=== PATIENT | male | born 1945 | race Caucasian/White ===

== ENCOUNTER 2018-05-04 10:27 | Outpatient (CLI) | payer MEDICARE, BC ==
--- NOTE | 2018-05-04 12:42 | RAD ---
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 FINDINGS: AP, lateral, swimmer's, flexion and extensive views of the cervical spine obtained. IMPRESSION: Images demonstrate no evidence of significant anterolisthesis or retrolisthesis seen. There is some d isc space height loss with anterior and posterior osteophytes seen at the C5-6 level. This is compati ble with mild changes of spondylosis. No other acute cervical spine abnormality is seen. IMPRESSION: Mild C5-6 changes of spondylosis. POS: C
== END 2018-05-04 10:28 | disposition home or self-care (01) ==
LOC: BICRAD 10:27
PROVIDERS: ATTEND Specialist
DX: M47.812 Spondylosis without myelopathy or radiculopathy, cervical region (principal)
CPT/HCPCS: 72050

== ENCOUNTER 2018-08-07 14:30 | Outpatient (CLI) | payer MEDICARE, BC ==
--- NOTE | 2018-08-10 23:13 | EKG ---
Test Reason : CODE GREEN/PAIN CLIN Blood Pressure : / mmHG Vent. Rate : 119 BPM Atrial Rate : 067 BPM P-R Int : 000 ms QRS Dur : 156 ms QT Int : 376 ms P-R-T Axes : 000 180 -06 degrees QTc Int : 528 ms Atrial fibrillation with rapid ventricular response Right bundle branch block Left posterior fascicular block Bifascicular block Inferior infarct , age undetermined Abnormal ECG When compared with ECG of 10-SEP-2005 09:54, Vent. rate has increased BY 49 BPM Left posterior fascicular block is now Present Confirmed by MISAEL LUNA M.D. ([id number]) on 08/10/2018 11:12:59 PM Referred By: MORENO Confirmed By:MISAEL LUNA M.D.
== END 2018-08-07 14:31 | disposition home or self-care (01) ==
LOC: EKG 14:30
PROVIDERS: ATTEND Specialist
DX: I48.91 Unspecified atrial fibrillation (principal)
CPT/HCPCS: 80053; 84484; 93005; 93010

== ENCOUNTER 2018-09-27 07:21 | Outpatient (CLI) | payer MEDICARE, BC ==
[2018-09-27 15:50] LABS: Hemoglobin 16.5 g/dL (14.0-18.0); Mean Corpuscular HGB CONC 33.9 g/dL (32.0-36.0); Mean Corpuscular Hemoglobin 30.8 pg (27.0-31.0); Mean Corpuscular Volume 91.1 fL (78.0-98.0); Mean Platelet Volume 7.5 fL (7.4-10.4); Platelet Count 250 thou/uL (130-400); RBC Distribution Width 12.6 % (11.5-14.5); Red Blood Cell (RBC) Count 5.35 mill/uL (4.70-6.10); White Blood Cell (WBC) Count 8.8 thou/uL (4.8-10.8)
[2018-09-27 15:57] LABS: INR-International Normal Ratio 1.1; PTT 34.4 SEC (22.9-36.1); Prothrombin Time 14.7 SEC (12.0-14.7)
[2018-09-27 16:08] LABS: Anion Gap 15 mmol/L (10-20); BUN (Urea Nitrogen) 15 mg/dL (8.4-25.7); Calc. Creatinine Clearance 0 mL/min (70-130); Calcium 10.3 mg/dL (7.8-10.44); Carbon Dioxide 19 mmol/L (23-31); Chloride 107 mmol/L (98-107); Estimated GFR-MDRD 76; Glucose 82 mg/dL (83-110); Potassium 4.4 mmol/L (3.5-5.1); Sodium 137 mmol/L (136-145)
--- NOTE | 2018-09-28 18:11 | EKG ---
Test Reason : Blood Pressure : / mmHG Vent. Rate : 084 BPM Atrial Rate : 092 BPM P-R Int : 000 ms QRS Dur : 154 ms QT Int : 398 ms P-R-T Axes : 000 144 019 degrees QTc Int : 470 ms Atrial fibrillation Right bundle branch block Abnormal ECG When compared with ECG of 07-AUG-2018 14:15, Criteria for Inferior infarct are no longer Present Confirmed by DR. Clare ORTEGA ([id number]) on 09/28/2018 6:10:50 PM Referred By: [facility] Confirmed By:DR. Clare ORTEGA
== END 2018-09-27 07:22 | disposition home or self-care (01) ==
LOC: LABBT 07:21
PROVIDERS: ATTEND Internal Medicine Cardiovascular Disease
DX: Z01.818 Encounter for other preprocedural examination (principal); I48.91 Unspecified atrial fibrillation
CPT/HCPCS: 80048; 85027; 85610; 85730; 93005; 93010

== ENCOUNTER 2018-10-02 08:13 | Observation (INO) | payer MEDICARE, BC ==
[2018-09-27 14:56] VITALS: BMI 35.6
[2018-10-02] MEDS ORDERED: PROPOFOL 200 MG/20 ML VIAL ONE (10:33)
[2018-10-02] MEDS ORDERED: PHENYLEPHRINE-NS 100 MCG/ML 10 ML SYRINGE ONE (10:33)
[2018-10-02] MEDS ORDERED: Gentamicin 80 MG/2 ML VIAL ONE (12:16)
[2018-10-02] MEDS ORDERED: Levofloxacin 500 mg/D5W 100 ml Premix Bag ONE (12:17)
[2018-10-02] MEDS ORDERED: Heparin 10,000 UNITS/1 ML VIAL ONE (12:18)
[2018-10-02] MEDS ORDERED: Propofol 500 MG/50 ML VIAL ONE (12:36)
[2018-10-02] MEDS ORDERED: Propofol 1,000 MG/100 ML VIAL IV ONE (12:36)
[2018-10-02] MEDS ORDERED: Midazolam HCl 2 mg/2 ml Vial ONE (13:20)
[2018-10-02] MEDS ORDERED: Fentanyl 100 MCG/2 ML VIAL ONE ×2 (13:21→16:44)
[2018-10-02] MEDS ORDERED: DOPamine 400 MG/D5W 250 ML 250 ML ONE (16:03)
[2018-10-02] MEDS ORDERED: HumaLOG 300 UNITS/3 ML VIAL SC SCH (17:30)
[2018-10-02] MEDS ORDERED: Acetaminophen/Codeine 30-300mg Tablet PO PRN (18:45)
[2018-10-02] MEDS ORDERED: Fenofibrate Nanocrystallized 145 MG TAB PO SCH (21:00)
[2018-10-02] MEDS: Clindamycin/D5W 600 MG in Premix Bag 1 BAG IVPB SCH (21:19)
--- NOTE | 2018-10-02 22:22 | OP ---
DATE OF PROCEDURE: 10/02/2018 PROCEDURE PERFORMED: EP study and radiofrequency ablation. REASON FOR PROCEDURE: Mr. Read is a 73-year-old man who has long-standing, over 30 years of chronic persisting atrial fibrillation. He has difficult rate control even with double AV luis fernando blocking agent therapy. His LVEF also has reduced. Here for potential resynchronization device and AV luis fernando ablation. DESCRIPTION OF PROCEDURE: The patient received propofol by anesthesia specialist. After adequate level of sedation achieved, the right femoral vein was prepped, draped, and anesthetized with subcutaneous lidocaine and under ultrasound guidance, the right femoral vein was accessed. An 8-Paraguayan short sheath was introduced through which a [employer] SF catheter was advanced to the right ventricular, right atrium, coronary sinus and His bundle location. Pacing, mapping, and recording were performed in each location. The His bundle was clearly delineated. The HV interval was measured to be 50 milliseconds. The atrial pacing was not possible due to persisting atrial fibrillation. Following that, 3D map of the right atrium, right ventricle, and the coronary sinus area was obtained. The His bundle and right bundle locations were clearly delineated. The baseline electrogram showed right bundle branch block pattern. On the other hand, with advancing the catheter probe into the coronary sinus, the no delayed activation of the LV lateral free wall was noted during baseline right bundle conduction. This was suggestive against against LV dyssynchrony due to RBBB. Decision was made to perform Bi-V pacing prior to AV luis fernando ablation using the His bundle location as a most optimal pacing location for the LV. At this point, a Bi-V pacemaker was inserted with RV lead in the distal right ventricular upper septum and the resynchronization lead was placed to the His bundle location, delivered through a deflectable catheter using Carto 3D map. For details, please see separate report. After the Bi-V pacemaker function was adequate, we proceeded with AV luis fernando ablation. A total of 3 lesions were delivered at 1 minute and 35 seconds duration at 40 cramer. During the ablation, initially junctional rhythm, but finally complete AV block was seen. Dopamine was administered and AV block persisted. The Bi-V pacing function had again revaluated. The Bi-V pacemaker was programmed to 75 beats per minute. The QRS duration had changed from the baseline 136 milliseconds in the right bundle pattern to 120 milliseconds with atypical right bundle pattern still existing. CONCLUSION: 1. Successful mapping of the His bundle and aiding the positioning of the LV lead to the His bundle area. 2. Successful Bi-V pacemaker implantation. Please see separate report. 3. Successful AV luis fernando ablation. PLAN: Resume anticoagulation lifelong and can taper off AV luis fernando blockers. Job ID: [id number] [facility]
[2018-10-03] MEDS: Clindamycin/D5W 600 MG in Premix Bag 1 BAG IVPB SCH (05:18)
[2018-10-03] MEDS: Acetaminophen/Codeine 30-300mg Tablet PO PRN ×2 (05:21→10:59)
[2018-10-03] MEDS ORDERED: Iopamidol 370 76% 50 ML VIAL FS ONE (07:55)
[2018-10-03] MEDS ORDERED: metFORMIN XR 500 MG TAB PO SCH (08:00)
--- NOTE | 2018-10-03 08:16 | RAD ---
CHEST ONE VIEW: INDICATIONS: New pacemaker. COMPARISON: None. FINDINGS: There is a dual-lead pacemaker overlying the left chest wall. Heart size is mildly prominent. Lungs are clear. No pneumothorax is evident. No acute osseous abnormality is evident. IMPRESSION: 1. No pneumothorax. 2. Pacemaker leads project in the expected positions. 3. Mild cardiomegaly without evidence of cardiac decompensation. POS: [facility]
[2018-10-03] MEDS ORDERED: Rosuvastatin 10 MG TAB PO SCH (09:00)
[2018-10-03] MEDS ORDERED: CANAGLIFLOZIN 100 MG PO SCH (09:00)
[2018-10-03] MEDS ORDERED: TESTOSTERONE GEL TOP SCH (09:00)
--- NOTE | 2018-10-03 09:37 | EKG ---
Test Reason : Blood Pressure : / mmHG Vent. Rate : 075 BPM Atrial Rate : 069 BPM P-R Int : 000 ms QRS Dur : 152 ms QT Int : 430 ms P-R-T Axes : 000 044 252 degrees QTc Int : 480 ms Electronic ventricular pacemaker When compared with ECG of 02-OCT-2018 17:07, (Unconfirmed) No significant change was found Confirmed by DR. Zahira OCONNOR ([id number]) on 10/03/2018 9:37:08 AM Referred By: KAYLIN Confirmed By:DR. Zahira OCONNOR
[2018-10-03 11:55] VITALS: TEMP 98.3
[2018-10-03] MEDS ORDERED: Clindamycin 150 MG CAP PO SCH (13:00)
[2018-10-03 13:04] VITALS: BP 109/54
--- NOTE | 2018-10-03 14:21 | DIS ---
DATE OF ADMISSION: 10/02/2018 DATE OF DISCHARGE: 10/03/2018 CONDITION ON DISCHARGE: Stable. DIAGNOSES: 1. Chronic atrial fibrillation. 2. Right bundle-branch block. PROCEDURES PERFORMED: 1. Successful mapping of the His bundle and aiding the position of the LV lead to the His bundle area. 2. Successful biventricular pacemaker implantation with a lead to the His bundle and lead to the right ventricle. 3. Successful AV node ablation. HISTORY OF PRESENT ILLNESS: Mr. Read is a 73-year-old gentleman with a longstanding 30-year history of chronic atrial fibrillation with difficult rate control in spite of maximizing AV luis fernando blocking agent therapy. His LVEF has also been reduced. He was admitted to the hospital to undergo a multilead pacemaker implantation and AV node ablation. His pacemaker is currently programed to 75 beats per minute. SUBJECTIVE: Mr. Read is feeling well today. He has been ambulating, tolerating p.o. intake, and voiding normally. He feels well and is eager to go home. He denies any heart racing or palpitations. OBJECTIVE: VITAL SIGNS: Temperature 98.3, pulse 75, blood pressure 120/58, respirations 16, oxygen is 96% on room air. GENERAL: The patient is alert and oriented. Speech is clear. Affect is appropriate. NEUROLOGIC: Grossly intact and nonfocal. NECK: Supple without jugular venous distention. CHEST: Heart rate is irregularly irregular at 75 beats per minute. His device is seated at the left infraclavicular fossa with some mild swelling and bruising. There is no drainage. There are no signs for infection. Dermabond is clearly intact over the incision with the edges well approximated. LUNGS: Clear to auscultation bilaterally without wheezes, crackles, or rhonchi. EXTREMITIES: Warm and dry to touch without clubbing, cyanosis, or edema. Gait is stable. DISCHARGE INSTRUCTIONS: No driving for 2 days. No extending left elbow above shoulder for 1 month. No full range of motion exercises for the left arm for 3 months. Take postimplant antibiotics as prescribed for 1 week. Wound and device check with [facility] in 10 to 14 days as already scheduled. Contact [facility] with any postimplant and postablation questions. DISCHARGE MEDICATIONS: Continued home medications: 1. Metoprolol succinate 50 mg b.i.d. 2. Humalog as directed. 3. Enalapril 5 mg daily. 4. Crestor 10 mg daily. 5. Colestipol 10 mg b.i.d. 6. Eliquis 5 mg twice a day, to resume tonight on 10/03/2018 with p.m. dose. 7. Tricor 140 mg p.o. at bedtime. 8. Metformin as directed. 9. Invokana as directed. 10. Trulicity as directed. 11. Testosterone gel as directed. Discontinued medications: Digoxin. New prescriptions: Clindamycin 300 mg p.o. q.i.d. x7 days, postimplant. The patient is stable and ready for discharge. We will see him back in clinic. He will contact us with any concerns in the interim. Job ID: [id number]
[2018-10-03] MEDS ORDERED: Apixaban 5 MG TAB PO SCH (21:00)
[2018-10-08] MEDS ORDERED: DULAGLUTIDE (TRULICITY) SC SCH (17:15)
== END 2018-10-03 14:10 | disposition home or self-care (01) ==
LOC: CCL 08:13 → 2SW 17:41
PROVIDERS: ADMIT Internal Medicine Cardiovascular Disease; ATTEND Internal Medicine Cardiovascular Disease
PROC: 02583ZZ Destruction of Conduction Mechanism, Percutaneous Approach (ICD-10-PCS; principal; 2018-10-02)
PROC: 02K83ZZ Map Conduction Mechanism, Percutaneous Approach (ICD-10-PCS; 2018-10-02)
PROC: 4A023FZ Measurement of Cardiac Rhythm, Percutaneous Approach (ICD-10-PCS; 2018-10-02)
PROC: 4A0234Z Measurement of Cardiac Electrical Activity, Percutaneous Approach (ICD-10-PCS; 2018-10-02)
PROC: 0JH607Z Insertion of Cardiac Resynchronization Pacemaker Pulse Generator into Chest Subcutaneous Tissue and Fascia, Open Approach (ICD-10-PCS; 2018-10-02)
PROC: 02HK3JZ Insertion of Pacemaker Lead into Right Ventricle, Percutaneous Approach (ICD-10-PCS; 2018-10-02)
DX: I48.2 Chronic atrial fibrillation (principal); I48.1 Persistent atrial fibrillation; I45.10 Unspecified right bundle-branch block; I10 Essential (primary) hypertension; E11.9 Type 2 diabetes mellitus without complications; E78.5 Hyperlipidemia, unspecified; I25.10 Atherosclerotic heart disease of native coronary artery without angina pectoris; G47.30 Sleep apnea, unspecified; Z88.0 Allergy status to penicillin; Z79.4 Long term (current) use of insulin; Z79.01 Long term (current) use of anticoagulants; Z79.2 Long term (current) use of antibiotics; Z79.899 Other long term (current) drug therapy
CPT/HCPCS: 33207; 33225; 71045; 75820; 76942; 82962 ×2; 93005; 93650; 93798; 96365; 96366; C1732; C1769; C1882; C1898 ×2; G0378; 33208; 36005; 36416; 93010; 93600; 93613; 93623; J1265; J1580; J1644; J1956; J2250; J2704; J3010; J3490; Q9967

== ENCOUNTER 2022-04-29 12:12 | Emergency (ER) | payer MEDICARE, BC ==
[~2022-04-29 12:12] MED LIST: Iopamidol-370 76% 500 ML 1 ML ONE
[2022-04-29 13:49] LABS: #Eosinphils 0.1 thou/uL (0.0-0.7); #Lymphocytes 1.9 thou/uL (1.20-3.40); #Monocytes 0.9 thou/uL (0.11-0.59); #Neutrophils 8.8 thou/uL (1.40-6.50); %Basophils 0.4 % (0.0-1.0); %Eosinophils 0.8 % (0.0-10.0); %Lymphocytes 15.9 % (21.0-51.0); %Monocytes 7.9 % (0.0-10.0); Hemoglobin 16.8 g/dL (14.0-18.0); Mean Corpuscular HGB CONC 32.3 g/dL (32.0-36.0); Mean Corpuscular Hemoglobin 29.8 pg (27.0-31.0); Mean Corpuscular Volume 92.2 fL (78.0-98.0); Mean Platelet Volume 7.5 fL (7.4-10.4); Platelet Count 201 thou/uL (130-400); RBC Distribution Width 12.1 % (11.5-14.5); Red Blood Cell (RBC) Count 5.66 mill/uL (4.70-6.10); White Blood Cell (WBC) Count 11.7 thou/uL (4.8-10.8)
[2022-04-29 14:06] LABS: ALT (SGPT) 40 U/L (8-55); AST (SGOT) 34 U/L (5-34); Albumin 4.6 g/dL (3.4-4.8); Alkaline Phosphatase 66 U/L (40-110); Anion Gap 17 mmol/L (10-20); BUN (Urea Nitrogen) 11 mg/dL (8.4-25.7); Bilirubin, Total 1.5 mg/dL (0.2-1.2); Calc. Creatinine Clearance 0 mL/min (70-130); Calcium 9.8 mg/dL (7.8-10.44); Carbon Dioxide 21 mmol/L (23-31); Chloride 102 mmol/L (98-107); Estimated GFR 89; Globulin 3.9 g/dL (2.4-3.5); Glucose 155 mg/dL (83-110); Lipase 14 U/L (8-78); Potassium 4.2 mmol/L (3.5-5.1); Protein, Total 8.5 g/dL (5.8-8.1); Sodium 136 mmol/L (136-145)
== END 2022-04-29 15:33 | disposition home or self-care (01) ==
LOC: ERS 12:12
DX: K59.00 Constipation, unspecified (principal); I10 Essential (primary) hypertension; E11.9 Type 2 diabetes mellitus without complications; I48.91 Unspecified atrial fibrillation; Z79.82 Long term (current) use of aspirin; Z79.84 Long term (current) use of oral hypoglycemic drugs; Z79.899 Other long term (current) drug therapy
CPT/HCPCS: 36415; 74177; 80053; 83605; 83690; 85025; Q9967

== ENCOUNTER 2022-04-30 09:12 | Outpatient (CLI) | payer MEDICARE, BC ==
[2022-04-30 11:50] LABS: Anion Gap 17 mmol/L (10-20); BUN (Urea Nitrogen) 11 mg/dL (8.4-25.7); Calc. Creatinine Clearance 0 mL/min (70-130); Calcium 9.5 mg/dL (7.8-10.44); Carbon Dioxide 23 mmol/L (23-31); Chloride 101 mmol/L (98-107); Estimated GFR 92; Glucose 137 mg/dL (83-110); Potassium 4.5 mmol/L (3.5-5.1); Sodium 136 mmol/L (136-145)
[2022-04-30 11:51] LABS: Hemoglobin 16.4 g/dL (13.5-17.5); Mean Corpuscular HGB CONC 34.2 g/dL (32.0-36.0); Mean Corpuscular Hemoglobin 29.9 pg (27.0-33.0); Mean Corpuscular Volume 87.4 fl (81.2-95.1); Mean Platelet Volume 10.2 fl (7.4-10.4); Platelet Count 225 10x3/uL (150-450); RBC Distribution Width 12.8 % (11.5-14.5); Red Blood Cell (RBC) Count 5.48 10x6/uL (4.32-5.72); White Blood Cell (WBC) Count 9.6 10x3/uL (3.5-10.5)
[2022-04-30 12:03] LABS: Prothrombin Time 10.2 sec (9.5-12.1)
== END 2022-04-30 09:13 | disposition home or self-care (01) ==
LOC: LABBT 09:12
PROVIDERS: ATTEND Surgery
DX: Z01.812 Encounter for preprocedural laboratory examination (principal); M54.16 Radiculopathy, lumbar region; M48.062 Spinal stenosis, lumbar region with neurogenic claudication
CPT/HCPCS: 80048; 85027; 85610; 85730

== ENCOUNTER 2022-08-10 16:58 | Inpatient (IN) | payer MEDICARE, BC ==
[2022-08-10 18:00] LABS: #Basophils 0.1 thou/uL (0.0-0.2); #Eosinphils 0.2 thou/uL (0.0-0.7); #Monocytes 0.5 thou/uL (0.11-0.59); #Neutrophils 3.9 thou/uL (1.40-6.50); %Basophils 0.9 % (0.0-1.0); %Eosinophils 3.2 % (0.0-10.0); %Lymphocytes 30.1 % (21.0-51.0); %Monocytes 7.6 % (0.0-10.0); %Neutrophils 58.2 % (42.0-75.0); Hemoglobin 15.1 g/dL (14.0-18.0); Mean Corpuscular HGB CONC 34.6 g/dL (32.0-36.0); Mean Corpuscular Hemoglobin 30.7 pg (27.0-31.0); Mean Corpuscular Volume 88.7 fl (78.0-98.0); Mean Platelet Volume 8.2 fL (7.4-10.4); Platelet Count 168 10x3/uL (130-400); RBC Distribution Width 12.8 % (11.5-14.5); Red Blood Cell (RBC) Count 4.93 mill/uL (4.70-6.10); White Blood Cell (WBC) Count 6.7 10x3/uL (4.8-10.8)
[2022-08-10 18:35] LABS: ALT (SGPT) 19 U/L (8-55); AST (SGOT) 25 U/L (5-34); Albumin 4.1 g/dL (3.4-4.8); Alkaline Phosphatase 42 U/L (40-110); Anion Gap 19 mmol/L (10-20); BUN (Urea Nitrogen) 11 mg/dL (8.4-25.7); Bilirubin, Total 0.7 mg/dL (0.2-1.2); Calc. Creatinine Clearance 0 mL/min (70-130); Calcium 9.6 mg/dL (7.8-10.44); Carbon Dioxide 19 mmol/L (23-31); Chloride 106 mmol/L (98-107); Estimated GFR 95; Globulin 3.2 g/dL (2.4-3.5); Glucose 127 mg/dL (83-110); Protein, Total 7.3 g/dL (5.8-8.1); Sodium 140 mmol/L (136-145)
[2022-08-10 20:12] LABS: Magnesium 1.4 mg/dL (1.6-2.6)
[2022-08-10] MEDS ORDERED: Calcium Carbonate 500 MG ChewTAB PO PRN (21:04)
[2022-08-10] MEDS ORDERED: Ondansetron ODT 4 MG TAB PO PRN (21:04)
[2022-08-10] MEDS ORDERED: Senokot S 8.6-50 MG TAB PO PRN (21:04)
[2022-08-10] MEDS ORDERED: Dextrose 50% Abboject 50 ML SYRINGE SLOW IVP PRN (21:07)
[2022-08-10] MEDS ORDERED: Dextrose 5% in Water 1,000 ML IV PRN (21:07)
[2022-08-10] MEDS ORDERED: HumaLOG 300 UNITS/3 ML VIAL SC PRN (21:07)
[2022-08-10 21:56] LABS: Troponin I Less than 0.010 ng/mL (< 0.028)
[2022-08-10] MEDS ORDERED: Magnesium 2 GM/50 ML(in water) 2 GM in Premix Bag 1 BAG IVPB SCH (22:00)
[2022-08-10 22:31] VITALS: BMI 36.8
[2022-08-11] MEDS ORDERED: Dextrose 5%-Lactated Ringers 1,000 ML IV SCH (00:01)
[2022-08-11 01:24] LABS: Troponin I Less than 0.010 ng/mL (< 0.028)
[2022-08-11 05:39] LABS: Anion Gap 13 mmol/L (10-20); BUN (Urea Nitrogen) 10 mg/dL (8.4-25.7); Calc. Creatinine Clearance 144 mL/min (70-130); Calcium 9.1 mg/dL (7.8-10.44); Carbon Dioxide 25 mmol/L (23-31); Chloride 107 mmol/L (98-107); Estimated GFR 94; Glucose 115 mg/dL (83-110); Sodium 141 mmol/L (136-145)
[2022-08-11] MEDS ORDERED: Electrolyte Replacement Protocol 1 EACH FS SCH (08:00)
[2022-08-11] MEDS: metFORMIN 500 MG TAB PO SCH ×2 (08:42→20:42)
[2022-08-11] MEDS: Lisinopril 20 MG TAB PO SCH (08:43)
[2022-08-11] MEDS ORDERED: Magnesium 2 GM/50 ML(in water) 2 GM in Premix Bag 1 BAG IVPB SCH (09:00)
[2022-08-11] MEDS ORDERED: Empagliflozin 25 MG TAB PO SCH (09:00)
[2022-08-11 09:37] LABS: Magnesium 1.8 mg/dL (1.6-2.6)
[2022-08-11] MEDS ORDERED: Polyethylene Glycol 3350 17 GM Packet PO PRN ×2 (12:19→12:51)
[2022-08-11] MEDS ORDERED: Aspirin 81 mg Enteric Coated Tablet PO SCH (12:30)
[2022-08-11] MEDS: Sodium Chloride 0.9% 1,000 ML IV SCH (18:18)
[2022-08-11] MEDS: Rosuvastatin 10 MG TAB PO SCH (20:43)
[2022-08-11] MEDS: Communication Order-Pharmacy FS SCH (20:44)
[2022-08-12] MEDS: Sodium Chloride 0.9% 1,000 ML IV SCH (04:16)
[2022-08-12 05:10] LABS: #Basophils 0.1 thou/uL (0.0-0.2); #Eosinphils 0.2 thou/uL (0.0-0.7); #Monocytes 0.5 thou/uL (0.11-0.59); #Neutrophils 3.3 thou/uL (1.40-6.50); %Basophils 1.2 % (0.0-1.0); %Lymphocytes 33.2 % (21.0-51.0); %Monocytes 7.8 % (0.0-10.0); %Neutrophils 53.8 % (42.0-75.0); Mean Corpuscular HGB CONC 33.6 g/dL (32.0-36.0); Mean Corpuscular Hemoglobin 30.1 pg (27.0-31.0); Mean Corpuscular Volume 89.5 fl (78.0-98.0); Mean Platelet Volume 7.7 fL (7.4-10.4); Platelet Count 160 10x3/uL (130-400); RBC Distribution Width 12.9 % (11.5-14.5); Red Blood Cell (RBC) Count 4.65 mill/uL (4.70-6.10); White Blood Cell (WBC) Count 6.1 10x3/uL (4.8-10.8)
[2022-08-12 05:45] LABS: Anion Gap 14 mmol/L (10-20); BUN (Urea Nitrogen) 8 mg/dL (8.4-25.7); Calc. Creatinine Clearance 152 mL/min (70-130); Calcium 8.4 mg/dL (7.8-10.44); Carbon Dioxide 21 mmol/L (23-31); Chloride 111 mmol/L (98-107); Estimated GFR 95; Glucose 110 mg/dL (83-110); Potassium 3.8 mmol/L (3.5-5.1); Sodium 142 mmol/L (136-145)
[2022-08-12] MEDS: Lisinopril 20 MG TAB PO SCH (06:02)
[2022-08-12] MEDS: Aspirin 81 mg Enteric Coated Tablet PO SCH (06:02)
[2022-08-12] MEDS ORDERED: Lidocaine 1% (PF) 30 ML VIAL ONE (06:34)
[2022-08-12] MEDS ORDERED: Verapamil 5 MG/2 ML VIAL ONE (06:34)
[2022-08-12] MEDS ORDERED: Heparin 10,000 UNITS/ 10 ML VIAL ONE (06:34)
[2022-08-12] MEDS ORDERED: Nitroglycerin 100MG/250ML BOT 250 ML ONE (06:34)
[2022-08-12] MEDS ORDERED: Magnesium 2 GM/50 ML(in water) 2 GM in Premix Bag 1 BAG IVPB SCH (08:00)
[2022-08-12] MEDS ORDERED: Midazolam HCl 2 mg/2 ml Vial ONE (08:27)
[2022-08-12] MEDS ORDERED: FENTANYL 50 MCG/ML 1 ML VIAL ONE (08:28)
[2022-08-12] MEDS: Acetaminophen 325 MG TAB PO PRN (09:51)
[2022-08-12 10:10] LABS: Troponin I Less than 0.010 ng/mL (< 0.028)
[2022-08-12] MEDS ORDERED: Iopamidol 370 76% 100 ML VIAL ONE ×2 (14:27→15:33)
[2022-08-12] MEDS: Communication Order-Pharmacy FS SCH (19:00)
[2022-08-12] MEDS: Rosuvastatin 10 MG TAB PO SCH (20:32)
[2022-08-13 05:13] LABS: #Eosinphils 0.2 thou/uL (0.0-0.7); #Lymphocytes 1.6 thou/uL (1.20-3.40); #Monocytes 0.5 thou/uL (0.11-0.59); #Neutrophils 3.8 thou/uL (1.40-6.50); %Basophils 0.6 % (0.0-1.0); %Eosinophils 3.7 % (0.0-10.0); %Lymphocytes 26.5 % (21.0-51.0); %Monocytes 7.9 % (0.0-10.0); %Neutrophils 61.2 % (42.0-75.0); Hemoglobin 13.8 g/dL (14.0-18.0); Mean Corpuscular HGB CONC 34.4 g/dL (32.0-36.0); Mean Corpuscular Hemoglobin 30.6 pg (27.0-31.0); Mean Corpuscular Volume 88.9 fl (78.0-98.0); Platelet Count 160 10x3/uL (130-400); RBC Distribution Width 12.9 % (11.5-14.5); Red Blood Cell (RBC) Count 4.52 mill/uL (4.70-6.10); White Blood Cell (WBC) Count 6.2 10x3/uL (4.8-10.8)
[2022-08-13] MEDS: Lisinopril 20 MG TAB PO SCH (05:30)
[2022-08-13] MEDS: Aspirin 81 mg Enteric Coated Tablet PO SCH (05:31)
[2022-08-13 05:32] LABS: Anion Gap 14 mmol/L (10-20); BUN (Urea Nitrogen) 8 mg/dL (8.4-25.7); Calc. Creatinine Clearance 161 mL/min (70-130); Calcium 8.6 mg/dL (7.8-10.44); Carbon Dioxide 21 mmol/L (23-31); Chloride 110 mmol/L (98-107); Estimated GFR 97; Glucose 123 mg/dL (83-110); Magnesium 2.2 mg/dL (1.6-2.6); Potassium 4.1 mmol/L (3.5-5.1); Sodium 141 mmol/L (136-145)
[2022-08-13] MEDS ORDERED: Isoproterenol 0.2 MG/1 ML AMP ONE (12:04)
[2022-08-13] MEDS ORDERED: Clindamycin/D5W 900 mg/50 ml Premix Bag ONE (12:04)
[2022-08-13] MEDS ORDERED: Heparin 10,000 UNITS/ 10 ML VIAL ONE (12:04)
[2022-08-13] MEDS ORDERED: Lidocaine 1% (PF) 30 ML VIAL ONE (12:04)
[2022-08-13] MEDS ORDERED: Gentamicin 80 MG/2 ML VIAL ONE (12:04)
[2022-08-13] MEDS ORDERED: Midazolam HCl 2 mg/2 ml Vial ONE (13:35)
[2022-08-13] MEDS ORDERED: FENTANYL 50 MCG/ML 1 ML VIAL ONE (13:36)
[2022-08-13] MEDS ORDERED: Propofol 1,000 MG/100 ML VIAL IV ONE (14:31)
[2022-08-13] MEDS ORDERED: ePHEDrine 50 MG/ML VIAL ONE (14:46)
[2022-08-13] MEDS ORDERED: Promethazine HCl 25 MG/ML VIAL IM PRN (15:29)
[2022-08-13] MEDS ORDERED: Ondansetron HCl/PF 4 MG/2 ML Vial IVP PRN (15:29)
[2022-08-13] MEDS ORDERED: Fentanyl 100 MCG/2 ML VIAL ONE (15:30)
[2022-08-13] MEDS: Acetaminophen 325 MG TAB PO PRN (17:43)
[2022-08-13 19:24] VITALS: BP 121/58; TEMP 98
[2022-08-14] MEDS ORDERED: Lisinopril 10 MG TAB PO SCH (09:00)
[2022-08-17] MEDS ORDERED: Dulaglutide [Trulicity] 1.5 MG/0.5 ML Pen.Injctr SC SCH (09:00)
== END 2022-08-13 19:29 | disposition home or self-care (01) | DRG 274 ==
LOC: ERS 16:58 → 2SW 19:33 → OBSVTOIN 08-11 09:55
PROVIDERS: ADMIT Student in an Organized Health Care Education/Training Program; ATTEND Internal Medicine
PROC: 4A023N7 Measurement of Cardiac Sampling and Pressure, Left Heart, Percutaneous Approach (ICD-10-PCS; principal; 2022-08-12)
PROC: B2111ZZ Fluoroscopy of Multiple Coronary Arteries using Low Osmolar Contrast (ICD-10-PCS; 2022-08-12)
PROC: B2151ZZ Fluoroscopy of Left Heart using Low Osmolar Contrast (ICD-10-PCS; 2022-08-12)
PROC: 4A0234Z Measurement of Cardiac Electrical Activity, Percutaneous Approach (ICD-10-PCS; 2022-08-13)
PROC: 02K83ZZ Map Conduction Mechanism, Percutaneous Approach (ICD-10-PCS; 2022-08-13)
PROC: 4A023FZ Measurement of Cardiac Rhythm, Percutaneous Approach (ICD-10-PCS; 2022-08-13)
DX: I47.20 Ventricular tachycardia, unspecified (principal); E87.20 Acidosis, unspecified; I48.20 Chronic atrial fibrillation, unspecified; E78.5 Hyperlipidemia, unspecified; E11.9 Type 2 diabetes mellitus without complications; E66.9 Obesity, unspecified; I25.10 Atherosclerotic heart disease of native coronary artery without angina pectoris; E83.42 Hypomagnesemia; D53.9 Nutritional anemia, unspecified; Z20.822 Contact with and (suspected) exposure to COVID-19; I11.0 Hypertensive heart disease with heart failure; I50.9 Heart failure, unspecified; I25.5 Ischemic cardiomyopathy; Z90.49 Acquired absence of other specified parts of digestive tract; Z79.899 Other long term (current) drug therapy; Z68.36 Body mass index [BMI] 36.0-36.9, adult; Z95.0 Presence of cardiac pacemaker; Z98.890 Other specified postprocedural states; Z88.0 Allergy status to penicillin; Z79.82 Long term (current) use of aspirin; Z79.84 Long term (current) use of oral hypoglycemic drugs; Z90.89 Acquired absence of other organs
CPT/HCPCS: 36415; 36416; 80048; 80053; 82550; 83735; 83880; 84484; 85025; 93005; 93306; 93458; 93613; 93620; 93621; 93623; 96365; 99152; 99156; C1732; C1769; C1894; G0378; J1580; J1644; J2001; J2250; J2704; J3010; J3475; J3490; J7050; Q9967; U0003; U0005

== ENCOUNTER 2022-11-18 08:27 | Outpatient (CLI) | payer MEDICARE, BC | END 2022-11-18 08:28 | disposition home or self-care (01) | LOC: BICRAD 08:27 | DX: Z48.812 Encounter for surgical aftercare following surgery on the circulatory system (principal); Z95.0 Presence of cardiac pacemaker | CPT/HCPCS: 71046 ==